=== PATIENT | female | born 1940 | race Caucasian/White ===

== ENCOUNTER → 2017-09-12 | Outpatient (CLI) | payer MEDICARE, BC ==
[~2017-09-12] MED LIST: CALMAGZIN; DAILY MULTIPLE1 EACH; FAMO10; GLUCOSAMINE CH1 EAC3; Hard Nails2500 MCG; MAGNESIUM250 MG; MELA3; NAPR220
== END | disposition home or self-care (01) ==
LOC: LAB SHORT 16:11 → LAB 16:11
DX: N39.0 Urinary tract infection, site not specified (principal)
CPT/HCPCS: 87077; 87086; 87186

== ENCOUNTER → 2017-10-17 | Outpatient (CLI) | payer MEDICARE, BC | LOC: PLD 11:10 → LAB SHORT 11:10 | DX: D48.5 Neoplasm of uncertain behavior of skin (principal) | CPT/HCPCS: 88305 ==

== ENCOUNTER → 2018-08-20 | Outpatient (CLI) | payer MEDICARE, BC ==
[2018-08-22 14:08] LABS: HPV 16 Negative (Negative); HPV 18 Negative (Negative); HPV OTHER HR TYPES Negative (Negative)
== END | disposition home or self-care (01) ==
LOC: LAB SHORT 17:47 → LAB 17:47
PROVIDERS: Obstetrics & Gynecology Gynecology
DX: Z12.72 Encounter for screening for malignant neoplasm of vagina (principal)
CPT/HCPCS: 87624; G0123

== ENCOUNTER 2022-09-07 08:34 | Day surgery (SDC) | payer MEDICARE, BC ==
[~2022-09-07] VITALS: Ht 160 cm; Wt 63.7 kg
== END 2022-09-07 10:24 | disposition home or self-care (01) ==
LOC: ORSCSDS 08:34
PROVIDERS: Surgery
PROC: 0DJ08ZZ Inspection of Upper Intestinal Tract, Via Natural or Artificial Opening Endoscopic (ICD-10-PCS; principal; 2022-09-07 10:00)
DX: R10.13 Epigastric pain (principal); K44.9 Diaphragmatic hernia without obstruction or gangrene; K21.9 Gastro-esophageal reflux disease without esophagitis; E78.5 Hyperlipidemia, unspecified; E55.9 Vitamin D deficiency, unspecified
CPT/HCPCS: J2704; J7120

== ENCOUNTER 2023-01-23 09:14 | Day surgery (SDC) | payer MEDICARE, BC ==
[~2023-01-23] VITALS: Ht 160 cm; Wt 61.7 kg
--- NOTE | 2023-01-23 10:14 | NUR ---
01/23/23 1014 JOHN RAMOS PT COOPERATIVE WITH CARE AND PLEASANT, CALL LIGHT WITHIN REACH.
[2023-01-23 12:04] VITALS: BP 110/62
== END 2023-01-23 12:06 | disposition home or self-care (01) ==
LOC: ORSCSDS 09:14
PROVIDERS: Internal Medicine Gastroenterology
PROC: 0D758ZZ Dilation of Esophagus, Via Natural or Artificial Opening Endoscopic (ICD-10-PCS; principal; 2023-01-23 10:45)
PROC: 0DB78ZX Excision of Stomach, Pylorus, Via Natural or Artificial Opening Endoscopic, Diagnostic (ICD-10-PCS; principal; 2023-01-23 10:45)
DX: K22.2 Esophageal obstruction (principal); K21.00 Gastro-esophageal reflux disease with esophagitis, without bleeding; Q39.4 Esophageal web; K44.9 Diaphragmatic hernia without obstruction or gangrene; E78.5 Hyperlipidemia, unspecified
CPT/HCPCS: 88305; C1726; J2704; J7120

== ENCOUNTER 2023-06-19 07:29 | Day surgery (SDC) | payer MEDICARE, BC ==
[~2023-06-19] VITALS: Ht 160 cm; Wt 62.6 kg
[~2023-06-19 07:29] MED LIST changes: +MELA3 PO; +Magnesium250 MG PO; +OMEGA-3 1,0501 EACH PO; +OYSTER SHELL 51 EAC2 PO; +TURMERIC500 M2 PO; +VITAMIN B-1100 M1 PO; +Vitamin B Comple1 EA PO; +Vitamin B-12100 MCG PO; +[UNRECOGNIZED DRUG - OTHER] PO
[2023-06-19 10:12] VITALS: BP 108/57
== END 2023-06-19 10:18 | disposition home or self-care (01) ==
LOC: ORSCSDS 07:29
PROVIDERS: Internal Medicine Gastroenterology
PROC: 0D758ZZ Dilation of Esophagus, Via Natural or Artificial Opening Endoscopic (ICD-10-PCS; principal; 2023-06-19 08:45)
DX: K21.00 Gastro-esophageal reflux disease with esophagitis, without bleeding (principal); R13.10 Dysphagia, unspecified; K22.2 Esophageal obstruction; K44.9 Diaphragmatic hernia without obstruction or gangrene; E78.5 Hyperlipidemia, unspecified
CPT/HCPCS: C1726; J2704; J7120

== ENCOUNTER 2025-05-05 10:47 | Day surgery (SDC) | payer MEDICARE, BC ==
[~2025-05-05] VITALS: Ht 160 cm; Wt 60.8 kg
[~2025-05-05 10:47] MED LIST changes: +ADVANCED ESTER C PO; +OMEGA-3 + D SO1 EACH PO; +PANT20 PO
[2025-05-05] MEDS ORDERED: OMEPRAZOLE20 MG (11:30)
[2025-05-05 13:29] VITALS: BP 127/65
== END 2025-05-05 13:22 | disposition home or self-care (01) ==
LOC: ORSCSDS 10:47
PROVIDERS: Specialist
PROC: 0D758ZZ Dilation of Esophagus, Via Natural or Artificial Opening Endoscopic (ICD-10-PCS; principal; 2025-05-05 12:00)
DX: R13.10 Dysphagia, unspecified (principal); K22.2 Esophageal obstruction; K44.9 Diaphragmatic hernia without obstruction or gangrene; K21.9 Gastro-esophageal reflux disease without esophagitis; E78.5 Hyperlipidemia, unspecified
CPT/HCPCS: C1769; J2704; J7120